=== PATIENT | male | born 1935 | race African-American/Black ===

== ENCOUNTER 2017-04-03 11:29 | Emergency (ER) | payer MEDICARE ==
[~2017-04-03 11:29] MED LIST: Iopamidol 370 76% 100 ML VIAL ONE
[2017-04-03 12:15] LABS: #Basophils 0.1 thou/uL (0.0-0.2); #Eosinphils 0.3 thou/uL (0.0-0.7); #Lymphocytes 1.7 thou/uL (1.20-3.40); %Eosinophils 2.5 % (0.0-10.0); %Lymphocytes 17.1 % (21.0-51.0); %Monocytes 10.3 % (0.0-10.0); Mean Platelet Volume 8.6 fL (7.4-10.4); Red Blood Cell (RBC) Count 4.47 mill/uL (4.70-6.10); White Blood Cell (WBC) Count 10.1 thou/uL (4.8-10.8)
[2017-04-03 12:30] LABS: Lactic Acid - Sepsis 0.9 mmol/L (0.5-2.2)
[2017-04-03 12:34] LABS: ALT (SGPT) 12 U/L (8-55); AST (SGOT) 18 U/L (5-34); Alkaline Phosphatase 115 U/L (40-150); Anion Gap 14 mmol/L (10-20); BUN (Urea Nitrogen) 14 mg/dL (8.4-25.7); Bilirubin, Total 0.7 mg/dL (0.2-1.2); Calc. Creatinine Clearance 0 mL/min (70-130); Calcium 9.2 mg/dL (7.8-10.44); Carbon Dioxide 23 mmol/L (23-31); Chloride 103 mmol/L (98-107); Estimated GFR-MDRD Greater than 90; Globulin 3.8 g/dL (2.4-3.5); Lipase 27 U/L (8-78); Protein, Total 7.1 g/dL (5.8-8.1)
[2017-04-03 12:35] LABS: Troponin I Less than 0.010 ng/mL (< 0.028)
[2017-04-03 13:24] LABS: Bilirubin Negative (Negative); Blood, Urine Negative (Negative); Glucose, Urine (Dipstick) Negative (Negative); Ketone, Urine Negative (Negative); Nitrite Negative (Negative); Protein, Urine (Dipstick) Negative (Neg-Trace); Urobilinogen 0.2 mg/dL (0.2-1.0)
--- NOTE | 2017-04-03 13:35 | ULT ---
ULTRASOUND ABDOMEN: HISTORY: Epigastric pain. COMPARISON: None. FINDINGS: Exam is limited to bowel gas. The pancreas is not well seen. The visualized aorta and IVC are unremarkable. The right lobe of the liver is normal. The liver me asures 14.8 cm in length. The main pulmonary vein is patent with antegrade flow. The common bile duct measures 5 mm, normal. The right kidney measures 9.4 x 4.1 cm x 3.6 cm, withou t mass, hydronephrosis, or abnormal calcifications. The spleen measures 8.2 x 2.6 cm. The left kid ailyn measures 9 x 4.9 x 5.1 cm, without mass, hydronephrosis, or abnormal calcifications. The gallbladder is not visualized. IMPRESSION: Within the limits of this study, no acute abnormality. Of note, the gallbladder was not seen on thi s exam. Recommend surgical history for cholecystectomy. If there is none, the gallbladder is likel y then contracted. POS: OFF
[2017-04-03 13:36] LABS: Bacteria/HPF 2+ HPF (None Seen); Hyaline Casts/LPF 0-3 HYALINE CAST LPF (0-3 Hyaline); RBC/HPF 0-3 HPF (0-3)
--- NOTE | 2017-04-03 14:00 | RAD ---
ABDOMEN 2 VIEW WITH 1 VIEW CHEST XRAY: HISTORY: Intermittent epigastric pain since yesterday. Hematochezia. Prostatectomy. COMPARISON: None. FINDINGS: There is abnormal dilatation of the transverse and proximal descending thoracic aorta. There also a ppear to be some calcified hilar lymph nodes on the left. Right upper quadrant surgical clips. There are also surgical clips in the pelvis. Moderate narrowing of both acromioclavicular joints. No focal airspace consolidation. IMPRESSION: Abnormal transverse and proximal descending thoracic aorta may represent aneurysm. In a patient wit h current chest pain, a dissection cannot be totally excluded. A followup CT angiogram of the chest may be beneficial in this patient. Dr. Calvin Hassan was notified of the findings via telephone at 1:05 p.m. CODE CR POS: OFF
--- NOTE | 2017-04-03 15:00 | CT ---
CT ANGIOGRAM OF THE CHEST AND ABDOMEN DISSECTION PROTOCOL: HISTORY: Abnormal chest x-ray. Chest pain. COMPARISON: Chest radiograph same day. TECHNIQUE: CT angiogram of the chest and abdomen performed after the intravenous administration of contrast. FINDINGS: The thoracic aorta is markedly tortuous which gives the abnormal appearance on the chest x-ray. No dissection. The aorta measures 2.5 cm at the annulus, 3.5 cm at the sinus Valsalva, and 2.8 cm at t he sinotubular junction. Mid ascending aorta measures 3.2 cm. Transverse aorta is unremarkable. Pulmonary trunk is mildly enlarged measuring 33 mm. No proximal segmental pulmonary arterial fillin g defect. No pericardial effusion. There is some scarring in the right middle lobe at the anterior pleural wa ll versus some malignancy. This has a somewhat nodular appearance on series 5 image 64 and measures approximately 9 x 9 mm with peripheral cicatrization. Lung apices are not well defined on this examination. Extensive facet arthrosis lower lumbar spine. There is also severe degenerative disk space disease from L3-S1. No acute compression fracture. There is a cyst superior pole left kidney. No hydronephrosis. The pancreas, liver, and spleen are unremarkable. Prior cholecystectomy. No dilated loops of large or small bowel. IMPRESSION: 1. Extensive tortuosity of the thoracic and transverse aorta which had an abnormal appearance on th e chest radiograph. 2. A 9 x 9 mm either focal area of scaring or a mass within the anterior segment anterior portion r ight middle lobe. Consider a CT examination in 3 months versus PET/CT. 3. Aortic size as above. 4. Extensive spondylosis of the lumbar spine. CODE T CODE: LUNG NODULE POS: OFF
== END 2017-04-03 19:11 | disposition home or self-care (01) ==
LOC: SCSER 11:29
DX: N30.90 Cystitis, unspecified without hematuria (principal); K62.5 Hemorrhage of anus and rectum; M06.9 Rheumatoid arthritis, unspecified
CPT/HCPCS: 71275; 74022; 76700; 80053; 81003; 81015; 82274; 82553; 83605; 83690; 84484; 85025; 87086